=== PATIENT | male | born 1965 | race Caucasian/White ===

== ENCOUNTER 2017-05-28 12:29 | Emergency (ER) | payer OTHER ==
[~2017-05-28] VITALS: Ht 177.8 cm; Wt 121.8 kg
[~2017-05-28 12:29] MED LIST: ATOR10 PO; FLUO-1 PO
[2017-05-28 12:41] VITALS: BP 151/84; PULSE 59; RESP 16; TEMP 98.5; O2SAT 98
[2017-05-28] MEDS ORDERED: TRIA37.53 (12:50)
[2017-05-28] MEDS ORDERED: FENO1TAB46 PO (12:50)
[2017-05-28] MEDS ORDERED: FLUO40CA PO (12:50)
[2017-05-28] MEDS ORDERED: ATOR10TA15 PO (12:50)
--- NOTE | 2017-05-28 13:14 | PD ---
HPI Chief Complaint: Abdominal Pain Time Seen by Provider: 12:55 Travel History International Travel<30 days: No Contact w/Intl Traveler<30days: No Traveled to known affect area: No History of Present Illness HPI This patient complains of a pain the right side of his chest. Duration 3 days. Pain is pleuritic. Does feel like a sharp stabbing pain. He can readily reproduce it with a deep breath. He does not have productive cough or fever or injury. Symptoms are not exertional. He smokes cigars but denies lung disease. No alleviating factors. No exacerbating factors. Symptom severity is moderate. PFSH Past Medical History Anxiety: Yes Cardiovascular Problems: Yes (htn on meds) High Cholesterol: Yes Hypertension: Yes Past Surgical History Appendectomy: Yes Social History Alcohol Use: Yes (OCC) Tobacco Use: Yes (cigars) Substance Use: No Allergies-Medications (Allergen,Severity, Reaction): Coded Allergies: No Known Allergies (Verified Adverse Reaction, Unknown, 05/28/17) Reported Meds & Prescriptions Reported Meds & Active Scripts Active Reported Atorvastatin (Atorvastatin Calcium) 10 Mg Tab Unknown Dose PO HS Fenofibrate 40 Mg Tab Unknown Dose PO DAILY Fluoxetine (Fluoxetine HCl) 40 Mg Cap 40 Cap PO DAILY Triamterene-Hydrochlorothiazide 37.5-25 Mg Cap Unknown Dose DAILY Review of Systems General / Constitutional: No: Fever Eyes: No: Visual changes HENT: No: Headaches Cardiovascular: Positive: Chest Pain or Discomfort Respiratory: No: Shortness of Breath Gastrointestinal: No: Abdominal Pain Genitourinary: No: Dysuria Musculoskeletal: No: Pain Skin: No Rash Neurologic: No: Weakness Psychiatric: No: Depression Endocrine: No: Polydipsia Hematologic/Lymphatic: No: Easy Bruising Physical Exam Narrative GENERAL: Well-nourished, well-developed patient in no apparent distress. SKIN: Focused skin assessment reveals no rash and nodules. Skin is Warm and dry. HEAD: Atraumatic. Normocephalic. EYES: Pupils equal and round. No scleral icterus. No injection or drainage. ENT: No nasal bleeding or discharge. Mucous membranes pink and moist. NECK: Trachea midline. No JVD. CARDIOVASCULAR: Regular rate and rhythm. No murmur appreciated. RESPIRATORY: No accessory muscle use. Clear to auscultation. Breath sounds equal bilaterally. GASTROINTESTINAL: Abdomen soft, non-tender, nondistended. Hepatic and splenic margins not palpable. MUSCULOSKELETAL: No obvious deformities. No clubbing. No cyanosis. No edema. No chest wall tenderness NEUROLOGICAL: Awake and alert. No obvious cranial nerve deficits. Motor grossly within normal limits. Normal speech. PSYCHIATRIC: Appropriate mood and affect; insight and judgment normal. Data Data Last Documented VS Vital Signs Date Time Temp Pulse Resp B/P (MAP) Pulse Ox O2 Delivery O2 Flow Rate FiO2 05/28/17 15:24 59 18 133/71 (91) 97 Room Air 05/28/17 12:41 98.5 Orders Orders Complete Blood Count With Diff (05/28/17 13:03) Comprehensive Metabolic Panel (05/28/17 13:03) Lipase (05/28/17 13:03) Prothrombin Time / Inr (Pt) (05/28/17 13:03) Act Partial Throm Time (Ptt) (05/28/17 13:03) Iv Access Insert/Monitor (05/28/17 13:03) Sodium Chloride 0.9% Flush (Ns Flush) (05/28/17 13:15) Chest, Single Ap (05/28/17 13:03) Electrocardiogram (05/28/17 ) D-Dimer (05/28/17 13:03) Labs Laboratory Tests Test 05/28/17 13:27 White Blood Count 8.8 TH/MM3 Red Blood Count 4.63 MIL/MM3 Hemoglobin 13.2 GM/DL Hematocrit 39.6 % Mean Corpuscular Volume 85.6 FL Mean Corpuscular Hemoglobin 28.5 PG Mean Corpuscular Hemoglobin Concent 33.3 % Red Cell Distribution Width 12.9 % Platelet Count 347 TH/MM3 Mean Platelet Volume 6.7 FL Neutrophils (%) (Auto) 64.6 % Lymphocytes (%) (Auto) 27.5 % Monocytes (%) (Auto) 6.8 % Eosinophils (%) (Auto) 0.8 % Basophils (%) (Auto) 0.3 % Neutrophils # (Auto) 5.7 TH/MM3 Lymphocytes # (Auto) 2.4 TH/MM3 Monocytes # (Auto) 0.6 TH/MM3 Eosinophils # (Auto) 0.1 TH/MM3 Basophils # (Auto) 0.0 TH/MM3 CBC Comment DIFF FINAL Differential Comment Prothrombin Time 10.0 SEC Prothromb Time International Ratio 1.0 RATIO Activated Partial Thromboplast Time 26.2 SEC D-Dimer Quantitative (PE/DVT) LESS THAN 0.19 MG/L FEU Blood Urea Nitrogen 10 MG/DL Creatinine 0.88 MG/DL Random Glucose 73 MG/DL Total Protein 7.8 GM/DL Albumin 3.6 GM/DL Calcium Level 8.9 MG/DL Alkaline Phosphatase 64 U/L Aspartate Amino Transf (AST/SGOT) 17 U/L Alanine Aminotransferase (ALT/SGPT) 28 U/L Total Bilirubin 0.3 MG/DL Sodium Level 139 MEQ/L Potassium Level 4.2 MEQ/L Chloride Level 107 MEQ/L Carbon Dioxide Level 28.7 MEQ/L Anion Gap 3 MEQ/L Estimat Glomerular Filtration Rate 92 ML/MIN Lipase 139 U/L MDM Medical Decision Making Medical Screen Exam Complete: Yes Emergency Medical Condition: Yes Medical Record Reviewed: Yes Differential Diagnosis PE, costochondritis, rib strain Narrative Course I have reviewed the patient's electronic medical record. IV placed and labs sent I reviewed his chest x-ray is normal I reviewed his EKG which shows sinus rhythm without ectopy lab studies are normal including low d-dimer Which will rule out PE in this patient who is low risk Patient feels clinically well and stable for outpatient follow-up He recently started to play golf again and may have strained his chest wall that way Diagnosis Primary Impression: Non-cardiac chest pain Additional Impression: Pleuritic chest pain Additional Instructions: The patient was advised to follow up with their physician and return if they worsen. Med/Other Pt SpecificInfo: Other Disposition: 01 DISCHARGE HOME Condition: Stable Dallas Vanessa MD May 28, 2017 13:14
[2017-05-28] MEDS ORDERED: SODIUM CHLORIDE 0.9% FLUSH 10 ML FLUSH IV FLUSH PRN (13:15)
[2017-05-28 13:35] LABS: AUTOMATED NEUTROPHIL # 5.7 TH/MM3 (1.8-7.7); BASOPHIL % 0.3 % (0.0-2.0); EOSINOPHIL # 0.1 TH/MM3 (0-0.4); EOSINOPHIL % 0.8 % (0.0-4.0); HEMATOCRIT 39.6 % (39.0-51.0); HEMOGLOBIN 13.2 GM/DL (13.0-17.0); LYMPH % 27.5 % (9.0-44.0); LYMPHOCYTE # 2.4 TH/MM3 (1.0-4.8); MEAN CELL VOLUME 85.6 FL (80.0-100.0); MEAN CORPUSCULAR HEMOGLOBIN 28.5 PG (27.0-34.0); MEAN CORPUSCULAR HGB CONC 33.3 % (32.0-36.0); MEAN PLATELET VOLUME 6.7 FL (7.0-11.0); MONO % 6.8 % (0.0-8.0); MONOCYTE # 0.6 TH/MM3 (0-0.9); NEUT % 64.6 % (16.0-70.0); PLATELET COUNT 347 TH/MM3 (150-450); RED BLOOD COUNT 4.63 MIL/MM3 (4.50-5.90); RED CELL DISTRIBUTION WIDTH 12.9 % (11.6-17.2); WHITE BLOOD COUNT 8.8 TH/MM3 (4.0-11.0)
--- NOTE | 2017-05-28 13:41 | RADRPT ---
EXAM DATE/TIME: 05/28/2017 13:17 [facility] COMPARISON: No previous studies available for comparison. INDICATIONS : Right chest pain. MEDICAL HISTORY : Hypertension. Hypercholesterolemia. SURGICAL HISTORY : Appendectomy. ENCOUNTER: Initial ACUITY: 1 day PAIN SCORE: 5/10 LOCATION: Right chest FINDINGS: A single view of the chest demonstrates diminished lung volumes without evidence of mass, infiltrate or effusion. The cardiomediastinal contours are unremarkable. Osseous structures are intact. CONCLUSION: No acute disease. Priyank Lazaro MD on May 28, 2017 at 13:39 Board Certified Radiologist. This report was verified electronically.
[2017-05-28 13:51] LABS: CHLORIDE 107 MEQ/L (98-107); SODIUM (NA) 139 MEQ/L (136-145)
[2017-05-28 13:53] LABS: CALCIUM 8.9 MG/DL (8.5-10.1)
[2017-05-28 13:54] LABS: ALBUMIN 3.6 GM/DL (3.4-5.0); BICARBONATE 28.7 MEQ/L (21.0-32.0); BLOOD UREA NITROGEN 10 MG/DL (7-18); GLUCOSE,RANDOM 73 MG/DL (74-106)
[2017-05-28 13:55] VITALS: BP 120/71; PULSE 60; RESP 18; O2SAT 95
[2017-05-28 13:57] LABS: ALT (GPT) 28 U/L (12-78); AST (GOT) 17 U/L (15-37); CREATININE 0.88 MG/DL (0.60-1.30); GLOMERULAR FILTRATION RATE 92 ML/MIN (>89)
[2017-05-28 13:58] LABS: TOTAL BILIRUBIN ADULT 0.3 MG/DL (0.2-1.0); TOTAL PROTEIN 7.8 GM/DL (6.4-8.2)
[2017-05-28 14:00] LABS: ALKALINE PHOSPHATASE 64 U/L (45-117)
[2017-05-28 14:01] LABS: D-DIMER LESS THAN 0.19 MG/L FEU (0.00-0.50)
[2017-05-28 15:24] VITALS: BP 133/71; PULSE 59; RESP 18; O2SAT 97
--- NOTE | 2017-05-29 23:06 | EKG ---
Date Performed: 05/28/2017 Time Performed: 13:37:00 PTAGE: 51 years EKG: SINUS BRADYCARDIA POSSIBLE LEFT VENTRICULAR HYPERTROPHY ABNORMAL ECG PREVIOUS TRACING : 12/28/2008 09.56 Since the previous tracing, no significant change noted DOCTOR: Shane Ramirez Interpretating Date/Time 05/29/2017 23:04:37
== END 2017-05-28 15:52 | disposition home or self-care (01) ==
LOC: PHED 12:29
DX: R07.81 Pleurodynia (principal); R00.1 Bradycardia, unspecified; R94.31 Abnormal electrocardiogram [ECG] [EKG]; E78.00 Pure hypercholesterolemia, unspecified; I10 Essential (primary) hypertension; F41.9 Anxiety disorder, unspecified; Z72.0 Tobacco use; Z79.899 Other long term (current) drug therapy
CPT/HCPCS: 71045; 80053; 83690; 85025; 85379; 85610; 85730; 93005; 99284